=== PATIENT | male | born 1955 | race Caucasian/White ===

== ENCOUNTER 2018-07-05 20:35 | Emergency (ER) | payer SELFPAY ==
[2018-07-05] MEDS ORDERED: Ondansetron HCl/PF 4 MG/2 ML Vial ONE (21:02)
[2018-07-05 21:18] LABS: #Basophils 0.1 thou/uL (0.0-0.2); #Eosinphils 0.4 thou/uL (0.0-0.7); #Lymphocytes 1.8 thou/uL (1.20-3.40); #Neutrophils 11.9 thou/uL (1.40-6.50); %Basophils 0.4 % (0.0-1.0); %Eosinophils 2.8 % (0.0-10.0); %Lymphocytes 11.1 % (21.0-51.0); %Monocytes 12.1 % (0.0-10.0); %Neutrophils 73.5 % (42.0-75.0); Hemoglobin 15.1 g/dL (14.0-18.0); Mean Corpuscular HGB CONC 34.7 g/dL (32.0-36.0); Mean Corpuscular Hemoglobin 31.9 pg (27.0-31.0); Mean Corpuscular Volume 92.1 fL (78.0-98.0); Mean Platelet Volume 7.1 fL (7.4-10.4); Platelet Count 320 thou/uL (130-400); RBC Distribution Width 11.8 % (11.5-14.5); Red Blood Cell (RBC) Count 4.72 mill/uL (4.70-6.10); White Blood Cell (WBC) Count 16.2 thou/uL (4.8-10.8)
[2018-07-05 21:46] LABS: ALT (SGPT) 22 U/L (8-55); AST (SGOT) 18 U/L (5-34); Albumin 3.7 g/dL (3.4-4.8); Alkaline Phosphatase 152 U/L (40-150); Anion Gap 13 mmol/L (10-20); BUN (Urea Nitrogen) 8 mg/dL (8.4-25.7); Bilirubin, Total 0.4 mg/dL (0.2-1.2); Calc. Creatinine Clearance 0 mL/min (70-130); Carbon Dioxide 25 mmol/L (23-31); Chloride 104 mmol/L (98-107); Estimated GFR-MDRD 83; Globulin 3.3 g/dL (2.4-3.5); Glucose 108 mg/dL (80-115); Potassium 3.8 mmol/L (3.5-5.1); Sodium 138 mmol/L (136-145)
--- NOTE | 2018-07-05 22:18 | CT ---
CT CHEST WITH IV CONTRAST CT ABDOMEN AND PELVIS WITH IV CONTRAST CT THORACIC SPINE NONCONTRAST CT LUMBAR SPINE NONCONTRAST 07/05/18 HISTORY: Fall, chest and abdomen pain. Back pain and injury. COMPARISON: 01/22/12. FINDINGS: Subtle multifocal patchy infiltrate is present within the posterior segment right upper lobe. No evid ence of pneumothorax or mediastinal hematoma. Liver, spleen, kidneys, adrenal glands and pancreas are unremarkable. Small oval fluid density collection near the right internal inguinal ring is similar i n appearance to the prior study. Diverticula arise from the colon without adjacent inflammation. Prominent degenerative changes of the lumbar spine. Leftward convexed curvature. Vertebral body heigh ts and AP alignment are maintained. No acute fracture or dislocation. Old left rib fractures are appa rent. IMPRESSION: Subtle patchy infiltrate within the posterior segment right upper lobe is nonspecific. In the setting of recent trauma, this could reflect aspiration or contusion. No rib fractures or pneumothorax are a pparent. Please consider followup CT in 3 to 4 months to evaluate for resolution rather than progress ion of this parenchymal abnormality. Chronic type findings as detailed above. No acute traumatic injury is otherwise demonstrated. POS: ERROL
== END 2018-07-05 23:19 | disposition home or self-care (01) ==
LOC: ERS 20:35
DX: R07.89 Other chest pain (principal); J45.909 Unspecified asthma, uncomplicated; Z79.51 Long term (current) use of inhaled steroids; V80.010A Animal-rider injured by fall from or being thrown from horse in noncollision accident, initial encounter
CPT/HCPCS: 36415; 71260; 74177; 80053; 85025; 96374; 96375; J2270; J2405

== ENCOUNTER 2025-09-20 17:59 | Emergency (ER) | payer SELFPAY | END 2025-09-20 18:42 | disposition left against medical advice (07) | LOC: ERS 17:59 | DX: Z53.21 Procedure and treatment not carried out due to patient leaving prior to being seen by health care provider (principal) ==